=== PATIENT | male | born 1960 | race African-American/Black ===

== ENCOUNTER 2022-02-05 07:54 | Emergency (ER) | payer MEDICAID ==
[~2022-02-05] VITALS: Ht 182.9 cm; Wt 89.0 kg
[~2022-02-05 07:54] MED LIST: CYCL10TA21 MT; DOCU-138 MT; IBUP-2029 MT
[2022-02-05] MEDS ORDERED: METFORMIN (07:59)
[2022-02-05 09:00] LABS: BASOPHILS % 0.4 % (0.0-2.0); EOSINOPHILS % 0.2 % (0.0-5.0); HEMATOCRIT. 51.7 % (42.0-52.0); HEMOGLOBIN. 16.7 g/dL (14.0-18.0); LYMPHOCYTES % 11.1 % (20.0-50.0); MEAN CORPUSCULAR HEMOGLOBIN 27.3 pg (28.0-32.0); MEAN CORPUSCULAR VOLUME 84.6 fL (80.0-94.0); MEAN PLATELET VOLUME 10.2 fl (7.4-10.4); MONOCYTES % 12.6 % (2.0-8.0); NEUTROPHILS % 75.7 % (40.0-76.0); PLATELET 164 x1000/uL (130-400); RED BLOOD CELL COUNT 6.11 mill/uL (4.7-6.1); RED CELL DISTRIBUTION WIDTH 14.2 % (11.6-14.6)
[2022-02-05 09:08] LABS: CHLORIDE 99 mEq/L (98-107)
[2022-02-05 10:30] VITALS: BP 151/76
== END 2022-02-05 11:04 | disposition home or self-care (01) ==
LOC: ER 07:54
DX: K62.5 Hemorrhage of anus and rectum (principal); E11.9 Type 2 diabetes mellitus without complications; Z79.84 Long term (current) use of oral hypoglycemic drugs
CPT/HCPCS: 36415; 80053; 85025; 99283